=== PATIENT | male | born 1965 | race Caucasian/White ===

== ENCOUNTER 2019-01-23 18:02 | Emergency (ER) | payer SELFPAY ==
[~2019-01-23] VITALS: Ht 177.8 cm; Wt 102.1 kg
[2019-01-23] MEDS ORDERED: HYDROcodone/APAP 5 MG/325 MG (LORTAB) TAB PO ONE (19:00)
[2019-01-23] MEDS ORDERED: ORPHENADRINE 60 MG/2 ML (NORFLEX) AMP IM ONE (19:00)
--- NOTE | 2019-01-23 19:06 | NUR ---
pt denies chest pain. denies abd pain. no acute sighns of dypsnea noted. abd w/o pulsating massess noted.
[2019-01-23] MEDS ORDERED: PRD20T PO (19:39)
[2019-01-23] MEDS ORDERED: ACHD5005 PO (19:39)
[2019-01-23] MEDS ORDERED: CYCL10TA9 PO (19:39)
--- NOTE | 2019-01-23 19:40 | ED Back Pain ---
General Chief Complaint: Back Problems Stated Complaint: BACK PAIN Nursing Triage Note: pt twisted and turned his back yesterday am. been c/o back pain since. says he has " sciatica". pain rating 6. pt here with girlfreind per girlfriend. pt alert gcs 15. Nursing Sepsis Screen: No Definite Risk Source of Information: Patient Exam Limitations: No Limitations History of Present Illness Date Seen by Provider: Jan 23, 2019 Time Seen by Provider: 18:54 Allergies and Home Medications Allergies Coded Allergies: ibuprofen (Verified Allergy, Unknown, 01/23/19) Past Exyjfzm-Sbxmtz-Beyfqq Hx Patient Social History Alcohol Use: Rarely Uses Recreational Drug Use: No Smoking Status: Never a Smoker Recent Foreign Travel: No Contact w/Someone Who Travel: No Recent Infectious Disease Expo: No Physical Abuse: No Sexual Abuse: No Physical Exam Vital Signs Vital Signs - First Documented 01/23/19 18:29 Temp 98.5 Pulse 84 Resp 16 B/P (MAP) 147/94 (111) Pulse Ox 99 O2 Delivery Room Air Capillary Refill : Less Than 3 Seconds Height, Weight, BMI Height: 5'10.00" Weight: 225lbs. oz. 102.033779ki; BMI Method:Stated Progress/Results/Core Measures Results/Orders My Orders Orders - BERNOTJOSE Orphenadrine Injection (Norflex Injectio (01/23/19 19:00) Hydrocodone/Apap 5/325 Tablet (Lortab 5 (01/23/19 19:00) Medications Given in ED Current Medications Medications Dose Ordered Sig/Jasbir Route Start Time Stop Time Status Last Admin Dose Admin Acetaminophen/ Hydrocodone Bitart 1 tab ONCE ONCE PO 01/23/19 19:00 01/23/19 19:01 DC 01/23/19 19:03 1 TAB Orphenadrine Citrate 60 mg ONCE ONCE IM 01/23/19 19:00 01/23/19 19:01 DC 01/23/19 19:04 60 MG Vital Signs/I&O 01/23/19 18:29 Temp 98.5 Pulse 84 Resp 16 B/P (MAP) 147/94 (111) Pulse Ox 99 O2 Delivery Room Air Blood Pressure Mean: 111 Departure Impression Primary Impression: Back strain Disposition: 01 HOME, SELF-CARE Condition: Stable/Unchanged Departure-Patient Inst. Decision time for Depature: 19:37 Referrals: MIQUEL GREGG MD (PCP/Family) Primary Care Physician Patient Instructions: Lumbar Muscle Strain (DC) Add. Discharge Instructions: Take medication as directed. Follow-up with primary care provider as needed. Return back to the emergency room for worsening symptoms or concerns as needed. All discharge instructions reviewed with patient and/or family. Voiced understanding. Scripts Cyclobenzaprine HCl (Cyclobenzaprine HCl) 10 Mg Tablet 10 MG PO Q8H PRN for SPASMS, #15 TAB 0 Refills Prov: JOSE PÉREZ 01/23/19 Prednisone (Prednisone) 20 Mg Tab 40 MG PO DAILY for 5 Days, #10 TAB 0 Refills Prov: JOSE PÉREZ 01/23/19 Hydrocodone Bit/Acetaminophen (Hydrocodone/Acetaminophen 5/325mg Tablet) 1 Tab Tab 1 EACH PO Q4-6HR PRN for PAIN-MODERATE MDD 10 for 3 Days, #10 TAB Prov: JOSE PÉREZ 01/23/19 JOSE PÉREZ Jan 23, 2019 19:40
--- NOTE | 2019-01-23 19:48 | NUR ---
pt feels better but back pain continues rating 3.
[2019-01-23 19:59] VITALS: BP 148/101
--- NOTE | 2019-01-23 19:59 | NUR ---
d/c instructions to pt . told to read all papers. scripts paper only. pt left ambulatory with girlfriend. pt knows f/u. i went over the handtyped by information on the chart. pt had no iv.
== END 2019-01-23 19:59 | disposition home or self-care (01) ==
LOC: ER 18:04 → EDBD 18:04 → ER 19:59
DX: S39.012A Strain of muscle, fascia and tendon of lower back, initial encounter (principal); Z88.6 Allergy status to analgesic agent; X50.1XXA Overexertion from prolonged static or awkward postures, initial encounter
CPT/HCPCS: 99284

== ENCOUNTER 2020-06-14 08:05 | Emergency (ER) | payer OTHER ==
[~2020-06-14] VITALS: Ht 177.8 cm; Wt 106.6 kg
[~2020-06-14 08:05] MED LIST: ACHD5005 PO; CYCL10TA9 PO; PRD20T PO
[2020-06-14 08:23] VITALS: BP 147/101
--- NOTE | 2020-06-14 08:45 | ED Upper Extremity ---
General Chief Complaint: Upper Extremity Stated Complaint: RIGHT HAND PAIN Nursing Triage Note: PT AMB TO [facility] 5 WITH COMPLAINT OF RIGHT HAND PAIN AND SWELLING. STATES STARTED YESTERDAY. DENIES INJURY. Nursing Sepsis Screen: No Definite Risk Source: patient Exam Limitations: no limitations History of Present Illness Date Seen by Provider: Jun 14, 2020 Time Seen by Provider: 08:40 Initial Comments Patient is a 54-year-old male who presents to the emergency department today with a chief complaint of right wrist pain. Patient states he woke up with wrist pain yesterday morning does not recall any precipitating injuries. Did not have any falls. Patient states that it was somewhat painful throughout the day yesterday but he was able to use it. He woke up this morning and had significantly increased pain. Patient states that he ate pot roast for dinner last night. Does not recall any previous diagnoses of gout. Patient denies any recent illnesses, fevers, chills, productive cough. No coronavirus concerns. All other review of systems reviewed negative except as stated Onset: yesterday Severity: moderate Pain/Injury Location: right wrist Method of Injury: unknown Allergies and Home Medications Allergies Coded Allergies: ibuprofen (Verified Allergy, Unknown, 01/23/19) Home Medications Colchicine 0.6 Mg Capsule, 0.6 MG PO DAILY take 0.6 mg one hour after first dose. then one tablet daily until flare resolves Prescribed by: MAY MADRID on 06/14/20 0853 Cyclobenzaprine HCl 10 Mg Tablet, 10 MG PO Q8H PRN for SPASMS Prescribed by: JOSE PÉREZ on 01/23/191938 Hydrocodone Bit/Acetaminophen 1 Tab Tab, 1 EACH PO Q4-6HR PRN for PAIN-MODERATE Prescribed by: JOSE PÉREZ on 01/23/191938 Prednisone 20 Mg Tab, 40 MG PO DAILY Prescribed by: JOSE PÉREZ on 01/23/191938 Tramadol HCl 50 Mg Tablet, 50 MG PO Q6H PRN for PAIN Prescribed by: MAY MADRID on 06/14/20 0854 Patient Home Medication List Home Medication List Reviewed: Yes Review of Systems Constitutional: see HPI EENTM: no symptoms reported Respiratory: no symptoms reported Cardiovascular: no symptoms reported Gastrointestinal: no symptoms reported Genitourinary: no symptoms reported Musculoskeletal: joint pain (Right wrist) Skin: no symptoms reported Past Joenwfj-Ileeyp-Eiqwtb Hx Patient Social History Alcohol Use: Occasionally Uses Recreational Drug Use: No Smoking Status: Never a Smoker Recent Foreign Travel: No Contact w/Someone Who Travel: No Recent Infectious Disease Expo: No Recent Hopitalizations: No Immunizations Up To Date Tetanus Booster (TDap): Unknown PED Vaccines UTD: Yes Seasonal Allergies Seasonal Allergies: No Past Medical History Surgeries: Yes Respiratory: No Cardiac: Yes Hypertension Neurological: No Genitourinary: No Gastrointestinal: No Musculoskeletal: No Endocrine: No HEENT: No Cancer: No Psychosocial: No Integumentary: No Physical Exam Vital Signs Vital Signs - First Documented 06/14/20 08:23 Pulse 74 Resp 20 B/P (MAP) 147/101 (116) Pulse Ox 98 O2 Delivery Room Air Capillary Refill : Less Than 3 Seconds Height, Weight, BMI Height: 5'10.00" Weight: 225lbs. oz. 102.548167jw; 33.00 BMI Method:Stated General Appearance: WD/WN, no apparent distress HEENT: PERRL/EOMI Cardiovascular: regular rate, rhythm Respiratory: lungs clear, normal breath sounds, no respiratory distress, no accessory muscle use Shoulder: normal inspection, non-tender, no evidence of injury Elbow/Forearm: normal inspection, non-tender, no evidence of injury Wrist: Yes limited ROM, Yes swelling (Mild swelling noted about the right wrist tenderness to palpation over the dorsum of the wrist and into the dorsum of the hand over the fourth metacarpal) Hand: normal ROM, Right, bone tenderness (Slight tenderness over the dorsum of the hand over the fourth metacarpal) Neurologic/Tendon: normal sensation, normal motor functions, normal tendon functions Neurologic/Psychiatric: no motor/sensory deficits, alert, normal mood/affect, oriented x 3 Skin: normal color, warm/dry Progress/Results/Core Measures Results/Orders My Orders Orders - MAY MADRID MD Tramadol Tablet (Ultram Tablet) (06/14/20 09:00) Colchicine Tablet (Colcrys Tablet) (06/14/20 09:00) Vital Signs/I&O 06/14/20 08:23 Pulse 74 Resp 20 B/P (MAP) 147/101 (116) Pulse Ox 98 O2 Delivery Room Air Blood Pressure Mean: 116 Progress Progress Note : Time: 08:47 Progress Note 54-year-old male presents with a chief complaint of right wrist pain. Suspect gouty arthropathy. Will treat with oral colchicine and prednisone. Patient counseled on taking these medications with food. Encouraged to follow-up with his primary care physician, Dr. Paris Acosta Return precautions given Departure Impression Primary Impression: Wrist pain, acute Qualified Codes: M25.531 - Pain in right wrist Disposition: 01 HOME, SELF-CARE Condition: Stable Departure-Patient Inst. Referrals: MIQUEL GREGG MD (PCP/Family) Primary Care Physician Patient Instructions: Acute Pain, Adult (DC) Add. Discharge Instructions: Elevate your wrist to reduce swelling. You can apply ice for comfort. Take the colchicine as prescribed until this resolves. No longer than 3 to 5 days. Drink plenty of fluids to stay well-hydrated. Continue your meloxicam as needed for pain. Always take this medication with food as well. All discharge instructions reviewed with patient and/or family. Voiced understanding. Scripts Tramadol HCl (Tramadol HCl) 50 Mg Tablet 50 MG PO Q6H PRN for PAIN for 3 Days, #10 TAB 0 Refills Prov: MAY MADRID MD 06/14/20 Colchicine (Colchicine) 0.6 Mg Capsule 0.6 MG PO DAILY, #10 CAP take 0.6 mg one hour after first dose. then one tablet daily until flare resolves Prov: MAY MADRID MD 06/14/20 Work/School Note: Work Release Form Return to Work: Jun 16, 2020 MAY MADRID MD Jun 14, 2020 08:45
[2020-06-14] MEDS ORDERED: COLC0.6C3 PO (08:53)
[2020-06-14] MEDS ORDERED: TRM50T PO (08:54)
[2020-06-14] MEDS ORDERED: COLCHICINE 0.6 MG (COLCRYS) TABLET PO ONE (09:00)
== END 2020-06-14 09:16 | disposition home or self-care (01) ==
LOC: EDUNIT# 08:05 → ER 08:08
DX: M25.531 Pain in right wrist (principal); Z88.6 Allergy status to analgesic agent; Z79.52 Long term (current) use of systemic steroids
CPT/HCPCS: 99283

== ENCOUNTER 2021-04-14 04:06 | Emergency (ER) | payer BC, OTHER ==
[~2021-04-14] VITALS: Ht 177.8 cm; Wt 104.3 kg
[~2021-04-14 04:06] MED LIST changes: +COLC0.6C3 PO; +TRM50T PO
[2021-04-14] MEDS ORDERED: HYDROcodone/APAP 5 MG/325 MG (LORTAB) TAB PO ONE (04:30)
--- NOTE | 2021-04-14 04:31 | ED EENT ---
History of Present Illness General Chief Complaint: Ear Problems Stated Complaint: L EAR PAIN/HEARING LOSS/DRAINAGE Source: patient Exam Limitations: no limitations History of Present Illness Date Seen by Provider: Apr 14, 2021 Time Seen by Provider: 04:10 Initial Comments Patient to the ER by private conveyance from home with chief complaint of left- sided ear pain with discharge. He says last week on he had his ears flushed out because he had a lot of wax in the ear at a urgent care clinic. He said they noticed an abrasion in his ear. He says been using cotton balls in his ears but not put anything else in his ears. He does not have a significant history of fever, diabetes, immunocompromise, ear surgery etc. Allergies and Home Medications Allergies Coded Allergies: ibuprofen (Verified Allergy, Unknown, 01/23/19) Patient Home Medication List Home Medication List Reviewed: Yes Colchicine (Colchicine) 0.6 Mg Capsule, 0.6 MG PO DAILY Prescribed by: MAY MADRID on 06/14/20 0853 Cyclobenzaprine HCl (Cyclobenzaprine HCl) 10 Mg Tablet, 10 MG PO Q8H PRN for SPASMS Prescribed by: JOSE PÉREZ on 01/23/191938 Hydrocodone Bit/Acetaminophen (Lortab 5 Mg Tablet) 1 Tab Tab, 1 EACH PO Q4-6HR PRN for PAIN-MODERATE Prescribed by: JOSE PÉREZ on 01/23/191938 Prednisone (Prednisone) 20 Mg Tab, 40 MG PO DAILY Prescribed by: JOSE PÉREZ on 01/23/191938 Tramadol HCl (Tramadol HCl) 50 Mg Tablet, 50 MG PO Q6H PRN for PAIN Prescribed by: MAY MADRID on 06/14/20 0854 Review of Systems Review of Systems Constitutional: No chills, No diaphoresis Eyes: Denies Blindness, Denies Blurred Vision Ears: Denies Dizziness; Pain, Purulent Discharge Nose: denies clots, denies congestion Mouth: denies clots, denies pain, denies swelling Throat: denies pain, denies swelling Respiratory: No cough, No short of breath Cardiovascular: No chest pain, No edema All Other Systems Reviewed Negative Unless Noted: Yes Past Pwnrisg-Yljzdj-Wezwaf Hx Patient Social History Tobacco Use?: No Use of E-Cig and/or Vaping dev: No Immunizations Up To Date Tetanus Booster (TDap): Unknown PED Vaccines UTD: Yes Seasonal Allergies Seasonal Allergies: No Past Medical History Surgeries: Yes Respiratory: No Cardiac: Yes Hypertension Neurological: No Genitourinary: No Gastrointestinal: No Musculoskeletal: No Endocrine: No HEENT: No Cancer: No Psychosocial: No Integumentary: No Physical Exam Height, Weight, BMI Height: 5'10.00" Weight: 225lbs. oz. 102.203636qx; 33.00 BMI Method:Stated General Appearance: WD/WN, mild distress Eyes: bilateral eye normal inspection, bilateral eye PERRL, bilateral eye EOMI Ears: right ear canal normal, right ear TM normal; left ear discharge (Purulent, Fen), left ear swelling, left ear tenderness (Canal is swollen and occludes view of the tympanic membrane); bilateral ear auricle normal, bilateral ear other (No evidence of mastoid swelling or tenderness.) Nose: normal inspection; No active bleeding Mouth/Throat: normal mouth inspection, pharynx normal Neck: full range of motion, normal inspection Respiratory: no respiratory distress, no accessory muscle use Skin: normal color, warm/dry Progress/Results/Core Measures Results/Orders My Orders Orders - JIE WOODARD Hydrocodone/Apap 5/325 Tablet (Lortab 5 (04/14/21 04:30) Progress Progress Note : Time: 04:28 Progress Note Hydrocodone x1 now. Put him out on some Cipro dexamethasone and hydrocodone as necessary for breakthrough pain. We did review prescription monitoring software and did not find any clinically concerning pattern. Departure Impression Primary Impression: Otitis externa Qualified Codes: H60.312 - Diffuse otitis externa, left ear Disposition: 01 HOME, SELF-CARE Condition: Stable Departure-Patient Inst. Decision time for Depature: 04:29 Referrals: MIQUEL GREGG MD (PCP/Family) Primary Care Physician Patient Instructions: How to Use Ear Drops Add. Discharge Instructions: Drink lots of fluids. Tylenol 1000 mg every 8 hours as necessary for pain. Warm moist compresses held to the ear can be helpful for pain. Do not put anything in the ear except for drops. Ciprodex 4 drops in the affected ear twice a day for 1 week. Expect improvement over the next 3 to 4 days. If you are not seeing improvement or your symptoms are worsening then you should follow-up with your primary care doctor for reexamination. Hydrocodone 1 tablet every 6 hours as necessary for severe breakthrough pain. All discharge instructions reviewed with patient and/or family. Voiced understanding. Scripts Ciprofloxacin HCl/Dexameth (Ciprodex Otic Suspension) 7.5 Ml Soln 4 DROPS OT BID for 7 Days, #7.5 ML 0 Refills Prov: JIE WOODARD 04/14/21 Hydrocodone/Acetaminophen (Hydrocodone-Acetamin 5-325 mg) 1 Each Tablet 1 TAB PO Q6H PRN for PAIN-MODERATE (5-7), #12 TAB 0 Refills Prov: JIE WOODARD 04/14/21 JIE WOODARD Apr 14, 2021 04:31
[2021-04-14] MEDS ORDERED: ACHD5005 PO ×2 (04:32→04:33)
[2021-04-14] MEDS ORDERED: NF-CIPDEC OT (04:33)
[2021-04-14 04:52] VITALS: BP 168/77
== END 2021-04-14 04:52 | disposition home or self-care (01) ==
LOC: EDUNIT# 04:06 → ER 04:09
DX: H66.42 Suppurative otitis media, unspecified, left ear (principal); I10 Essential (primary) hypertension; Z79.52 Long term (current) use of systemic steroids
CPT/HCPCS: 99282